=== PATIENT | male | born 1955 ===

== ENCOUNTER 2021-07-04 00:26 | Emergency (ER) | payer BC ==
--- OUTSIDE RECORDS SUMMARY | 2021-07-04 00:59 | XMS REPORT | Continuity of Care Document ---
:1955 Author Organization [facility] t Address [address] [place] [address] [address]. [address] [place] [address] Care Team Providers Name Role Phone ASHANTI Attending Clinician Unavailable ILIA Attending Clinician Unavailable SIM Attending Clinician Unavailable CECILIA Attending Clinician Unavailable Payers Payer Name Policy Type Policy Number Effective Date Expiration Date S ource OUT OF STATE BCBS - [id number] PPO - BCBS CHOICE/CHOICE [id number] PLUS/OPTIONS PPO - [facility] Problems This patient has no known problems. Allergies, Adverse Reactions, Alerts This patient has no known allergies or adverse reactions. Medications This patient has no known medications. Procedures This patient has no known procedures. Encounters Start End Encounter Admission Attending Care Care Encounter Source Date/Time Date/Time Type Type Clinicians Facility Department ID 2021-04-14 2021-04-14 Outpatient DANIELITO BURRELL [facility] [id number] [facility] 12:12:42 12:25:38 MADI be Medicin e 2021-02-16 2021-02-16 [facility] [id number] 00:00:00 00:00:00 JEN 781 Method i 2020-11-11 2020-11-11 [facility] [id number] [place] 00:00:00 00:00:00 [place] 232 Method i 2020-10-28 2020-10-28 [facility] [id number] 00:00:00 00:00:00 ETIENNE martínez 2020-10-24 2020-10-24 [facility] [id number] [place] 00:00:00 00:00:00 [place] [address] 2020-10-07 2020-10-09 Outpatient [facility] [id number] [address] 00:00:00 00:00:[address] 2020-01-15 2020-01-15 Outpatient SIM, [facility] [id number] [address] 00:00:00 00:00:00 [place] [address] 2019-12-10 2019-12-10 Outpatient SIM, [facility] [id number] [place] 00:00:00 00:00:00 [place] [address] Results This patient has no known results.
[2021-07-04 01:31] LABS: Basophils % 0.9 % (0-1.3); Hematocrit 39.9 % (39.6-49.0); Lymphocytes % 29.3 % (15.3-44.8); MPV 8.9 fL (7.6-11.3); RBC Red Blood Cell Count 4.63 M/uL (4.33-5.43)
[2021-07-04 01:34] LABS: Protime INR 0.98
[2021-07-04] MEDS ORDERED: LORazepam 2 MG/ML VIAL ONE (01:42)
[2021-07-04] MEDS ORDERED: MECLIZINE HCL 12.5 MG TAB ONE (01:42)
[2021-07-04 01:52] LABS: ALT/SGPT 44 U/L (12-78); AST/SGOT 32 U/L (15-37); Albumin 4.2 g/dL (3.4-5.0); Alkaline Phosphatase 36 U/L (45-117); BUN Blood Urea Nitrogen 19 mg/dL (7-18); Bicarbonate 25 mmol/L (21-32); Bilirubin Direct 0.4 mg/dL (0-0.2); Glucose Level 102 mg/dL (74-106); Magnesium 1.8 mg/dL (1.8-2.4); NT PRO-BNP 97 pg/mL (<125); Protein, Total 6.9 g/dL (6.4-8.2); Sodium Level 140 mmol/L (136-145); Troponin (Emerg Dept Use Only) < 0.02 ng/mL (0.0-0.045)
[2021-07-04 02:51] LABS: Urine Blood Negative (Negative); Urine Glucose Negative (Negative); Urine Protein Negative (Negative); Urine Specific Gravity <=1.005 (1.005-1.030); Urine pH 5.5 (5.0-7.0)
--- NOTE | 2021-07-04 03:04 | ER ---
Nurse's Notes [facility] Name: Karlos Daniel Age: 66 yrs Sex: Male : 1955 Arrival Date: 07/04/2021 Time: 00:31 Bed 8 Private MD: Kyle Ross Diagnosis: Dizziness and giddiness;Anxiety disorder, unspecified Presentation: 07/04 00:46 Chief complaint: Patient states: he layed down tonight and started feeling tense, bb pressure on his ear, and he could not go to sleep tonight states he never feels like this. Coronavirus screen: At this time, the client does not indicate any symptoms associated with coronavirus-19. Ebola Screen: No symptoms or risks identified at this time. Initial Sepsis Screen: Does the patient meet any 2 criteria? No. Patient's initial sepsis screen is negative. Does the patient have a suspected source of infection?. Risk Assessment: Do you want to hurt yourself or someone else? Patient reports no desire to harm self or others. Onset of symptoms was July 03, 2021 at 20:30. 00:46 Method Of Arrival: Ambulatory bb 00:46 Acuity: ADDIE 3 bb Historical: - Allergies: 00:50 No Known Allergies; bb - Home Meds: 00:50 Vascepa oral [Active]; ezetimibe oral [Active]; esomeprazole magnesium oral [Active]; bb rosuvastatin oral [Active]; losartan-hydrochlorothiazide oral [Active]; aspirin 81 mg Oral tab [Active]; - Immunization history:: Adult Immunizations up to date, pfizer x 3. - Social history:: Smoking status: Patient denies any tobacco usage or history of. Screenin:30 Abuse screen: Denies threats or abuse. Nutritional screening: No deficits noted. as6 Tuberculosis screening: No symptoms or risk factors identified. Fall Risk None identified. Assessment: 01:27 General: Appears in no apparent distress. comfortable, Behavior is calm, cooperative, as6 anxious. Pain: Complains of pain in chest Quality of pain is described as pressure. Neuro: Level of Consciousness is awake, alert, obeys commands, Oriented to person, place, time, situation, Reports weakness. Cardiovascular: Capillary refill < 3 seconds Patient's skin is warm and dry. Chest pain quality is pressure. Respiratory: Airway is patent Trachea midline Respiratory effort is even, unlabored, Respiratory pattern is regular, symmetrical. Derm: Skin is intact, is healthy with good turgor, Skin is dry, Skin is pink, warm \T\ dry. Skin temperature is warm. Musculoskeletal: Reports weakness in generalized. Vital Signs: 00:46 BP 147 / 75; Pulse 54; Resp 16 S; Temp 97.6(O); Pulse Ox 100% on R/A; Weight 85.73 kg bb (R); Height 5 ft. 10 in. (177.80 cm) (R); Pain 0/10; 02:13 BP 126 / 75; Pulse 53; Resp 14 S; Pulse Ox 96% on R/A; as6 03:22 BP 119 / 75; Pulse 62; Resp 20 S; Pulse Ox 99% on R/A; as6 00:46 Body Mass Index 27.12 (85.73 kg, 177.80 cm) bb ED Course: 00:31 Patient arrived in ED. es 00:31 Kyle Ross MD is Private Physician. es 00:50 Triage completed. bb 00:50 Arm band placed on Patient placed in an exam room. bb 00:57 Jun Zhao PA is PHCP. cp 00:57 Jun Robles MD is Attending Physician. cp 01:01 Shaka Holder RN is Primary Nurse. as6 01:27 Inserted saline lock: 18 gauge in right antecubital area, using aseptic technique. as6 Blood collected. 01:30 Placed in gown. Bed in low position. Call light in reach. Side rails up X2. Adult w/ as6 patient. potline monitor on. Pulse ox on. NIBP on. Warm blanket given. 01:46 XRAY Chest (1 view) In Process Unspecified. EDMS 01:55 CT Head Brain wo Cont In Process Unspecified. EDMS 03:22 No provider procedures requiring assistance completed. IV discontinued, intact, as6 bleeding controlled, No redness/swelling at site. Pressure dressing applied. Administered Medications: 01:46 Drug: Ativan (LORazepam) 0.5 mg Route: IVP; Site: right antecubital; as6 02:00 Follow up: Response: No adverse reaction as6 01:46 Drug: Meclizine 25 mg Route: PO; as6 02:00 Follow up: Response: No adverse reaction as6 Outcome: 03:04 Discharge ordered by MD. pan 03:23 Discharged to home ambulatory, with significant other. as6 03:23 Condition: stable 03:23 Discharge instructions given to patient, significant other, Instructed on discharge instructions, follow up and referral plans. medication usage, Demonstrated understanding of instructions, follow-up care, medications, Prescriptions given X 2. 03:24 Patient left the ED. as6 Signatures: Dispatcher [employer] Marissa Morales Brenda, RN RN Jun Villarreal PA PA cp Slawson, Ashby, RN RN as6
--- NOTE | 2021-07-04 03:05 | EDPHYS ---
Physician Documentation [facility] Name: Karlos Daniel Age: 66 yrs Sex: Male : 1955 Arrival Date: 07/04/2021 Time: 00:31 Bed 8 Private MD: Kyle Ross ED Physician Jun Robles HPI: 07/04 01:20 This 66 yrs old Male presents to ER via Ambulatory with complaints of Anxiety, light cp headed, unable to sleep. 01:20 Patient reports he was at home tonight when he went to lay down in bed, started cp becoming anxious, unable to sleep, dizzy and felt pressure across chest. Patient reports he has been dealing with pressure in right ear, intermittent dizziness since September 2020. Has been seen by ENT. Historical: - Allergies: 00:50 No Known Allergies; bb - Home Meds: 00:50 Vascepa oral [Active]; ezetimibe oral [Active]; esomeprazole magnesium oral [Active]; bb rosuvastatin oral [Active]; losartan-hydrochlorothiazide oral [Active]; aspirin 81 mg Oral tab [Active]; - Immunization history:: Adult Immunizations up to date, pfizer x 3. - Social history:: Smoking status: Patient denies any tobacco usage or history of. ROS: 01:22 Constitutional: Negative for body aches, chills, fever, poor PO intake. cp 01:22 Eyes: Negative for injury, pain, redness, and discharge. cp 01:22 ENT: Negative for drainage from ear(s), ear pain, sore throat, difficulty swallowing, difficulty handling secretions. 01:22 Cardiovascular: Positive for chest pressure, Negative for edema. 01:22 Respiratory: Negative for cough, shortness of breath, wheezing. 01:22 Abdomen/GI: Negative for abdominal pain, nausea, vomiting, and diarrhea. 01:22 Neuro: Positive for dizziness, lightheaded, Negative for altered mental status, headache, weakness. 01:22 Psych: Positive for anxiety, insomnia. 01:22 All other systems are negative. Exam: 07/03 01:25 Constitutional: The patient appears in no acute distress, alert, awake, cp non-diaphoretic, non-toxic, well developed, well nourished. 01:25 Head/Face: Normocephalic, atraumatic. cp 01:25 Eyes: Periorbital structures: appear normal, Pupils: equal, round, and reactive to light and accomodation, Extraocular movements: intact throughout, Conjunctiva: normal, no exudate, no injection, Sclera: no appreciated abnormality, Lids and lashes: appear normal, bilaterally. 01:25 ENT: External ear(s): are unremarkable, Ear canal(s): are normal, clear, TM's: dullness, bilaterally, Nose: is normal, Mouth: Lips: moist, Oral mucosa: moist, Posterior pharynx: Airway: no evidence of obstruction, patent, swelling, is not appreciated, erythema, is not appreciated. 01:25 Neck: ROM/movement: is normal, is supple, without pain, no range of motions limitations, no meningismus. 01:25 Chest/axilla: Inspection: normal, Palpation: is normal, no crepitus, no tenderness. 01:25 Cardiovascular: Rate: bradycardic, Rhythm: regular, Edema: is not appreciated, JVD: is not appreciated. 01:25 Respiratory: the patient does not display signs of respiratory distress, Respirations: normal, no use of accessory muscles, no retractions, labored breathing, is not present, Breath sounds: are clear throughout, no decreased breath sounds, no stridor, no wheezing. 01:25 Abdomen/GI: Inspection: abdomen appears normal, Palpation: abdomen is soft and non-tender, in all quadrants. 01:25 Neuro: Orientation: to person, place \T\ time. Mentation: is normal, Cerebellar function: is grossly normal, Motor: moves all fours, strength is normal, Sensation: is normal. 07/04 01:24 ECG was reviewed by the Attending Physician. cp Vital Signs: 00:46 BP 147 / 75; Pulse 54; Resp 16 S; Temp 97.6(O); Pulse Ox 100% on R/A; Weight 85.73 kg bb (R); Height 5 ft. 10 in. (177.80 cm) (R); Pain 0/10; 02:13 BP 126 / 75; Pulse 53; Resp 14 S; Pulse Ox 96% on R/A; as6 03:22 BP 119 / 75; Pulse 62; Resp 20 S; Pulse Ox 99% on R/A; as6 00:46 Body Mass Index 27.12 (85.73 kg, 177.80 cm) bb MDM: 01:09 Patient medically screened. [facility] 03:00 Data reviewed: vital signs, nurses notes, lab test result(s), EKG, radiologic studies, cp CT scan, plain films. 03:00 Differential diagnosis: vertigo, anxiety, cardiac arrythmia. Test interpretation: by ED cp physician or midlevel provider: ECG, plain radiologic studies. Response to treatment: the patient's symptoms have markedly improved after treatment, VSS. Patient resting comfortably in exam room. Will discharge to home for continued monitoring. 07/04 01:13 Order name: Basic Metabolic Panel; Complete Time: 02:15 07/04 02:15 Interpretation: Normal except: BUN 19; GFR 82. 07/04 01:13 Order name: CBC with Diff; Complete Time: 02:15 07/04 02:15 Interpretation: Normal except: HGB 13.4. 07/04 01:13 Order name: LFT's; Complete Time: 02:15 07/04 02:16 Interpretation: Normal except: ALK 36; BILIT 2.0; BILID 0.4. 07/04 01:13 Order name: Magnesium; Complete Time: 02:15 07/04 01:13 Order name: NT PRO-BNP; Complete Time: 02:15 07/04 01:13 Order name: PT-INR; Complete Time: 02:15 07/04 01:13 Order name: CT Head Brain wo Cont 07/04 01:13 Order name: Troponin (emerg Dept Use Only); Complete Time: 02:15 07/04 01:13 Order name: XRAY Chest (1 view) 07/04 01:13 Order name: EKG; Complete Time: 01:14 07/04 01:13 Order name: Cardiac monitoring; Complete Time: 01:24 07/04 02:51 Order name: Urine Dipstick-Ancillary EDMS 07/04 01:13 Order name: EKG - Nurse/Tech; Complete Time: 01:24 07/04 01:13 Order name: IV Saline Lock; Complete Time: 01:24 07/04 01:13 Order name: Labs collected and sent; Complete Time: 01:24 07/04 01:13 Order name: O2 Per Protocol; Complete Time: 01:24 07/04 01:13 Order name: O2 Sat Monitoring; Complete Time: :24 cp 07/04 02:46 Order name: Urine Dipstick-Ancillary (obtain specimen); Complete Time: 03:18 cp EC: Rate is 54 beats/min. Rhythm is regular. IL interval is normal. QRS interval is normal. cp QT interval is normal. T waves are Inverted in lead aVR. Interpreted by me. Reviewed by me. Administered Medications: :46 Drug: Ativan (LORazepam) 0.5 mg Route: IVP; Site: right antecubital; 02:00 Follow up: Response: No adverse reaction as6 01:46 Drug: Meclizine 25 mg Route: PO; 02:00 Follow up: Response: No adverse reaction as6 Disposition Summary: 07/04/21 03:04 Discharge Ordered Location: Home cp Problem: new cp Symptoms: have improved cp Condition: Stable cp Diagnosis - Dizziness and giddiness cp - Anxiety disorder, unspecified cp Followup: cp - With: Private Physician - When: 2 - 3 days - Reason: Recheck today's complaints Discharge Instructions: - Discharge Summary Sheet cp - Dizziness cp - Generalized Anxiety Disorder, Adult cp Forms: - Medication Reconciliation Form cp - Thank You Letter cp - Antibiotic Education cp - Prescription Opioid Use cp Prescriptions: - Vistaril 25 mg Oral capsule - take 1 capsule by ORAL route 4 times per day As needed for anxiety; 30 capsule; cp Refills: 0, Product Selection Permitted - Meclizine 25 mg Oral Tablet - take 1 tablet by ORAL route every 8 hours As needed; 30 tablet; Refills: 0, cp Product Selection Permitted Addendum: 07/06/2021 07:47 Co-signature as Attending Physician, Jun Robles MD I agree with the assessment and c mas plan of care. Signatures: Dispatcher [employer] Jun Guevara MD MD cha Ballard, Brenda, RN RN Jun Villarreal PA PA cp Slawson, Ashby, RN RN as6
[2021-07-04 03:56] VITALS: TEMP 97.6
[2021-07-04 03:58] VITALS: BP 119/75; O2SAT 99
--- NOTE | 2021-07-04 10:40 | RAD REPORT ---
EXAM DESCRIPTION: Pietro Single View07/04/2021 1:46 am CLINICAL HISTORY: Chest pain COMPARISON: none FINDINGS: The lungs appear clear of acute infiltrate. The heart is normal size IMPRESSION: No acute abnormalities displayed
--- NOTE | 2021-07-04 12:36 | EKG ---
Test Date: 2021-07-04 Test Time: 01:15:39 Engineer Systems: MEASUREMENT RESULTS: Intervals: Rate: 54 CA: 154 QRSD: 100 QT: 452 QTc: 428 Aylett: P: 14 CA: 154 QRS: 14 T: 34 INTERPRETIVE STATEMENTS: Sinus bradycardia Inferior infarct, age undetermined Abnormal ECG No previous ECG available for comparison Electronically Signed On 07-04-21 12:35:31 SOFTWARE DESIGN ANALYST by Tru De La Paz
--- NOTE | 2021-07-05 10:01 | RAD REPORT ---
EXAM DESCRIPTION: CT - Head Brain Wo Cont - 07/04/2021 6:29 am CLINICAL HISTORY: Dizziness COMPARISON: None. TECHNIQUE: Head/brain axial images acquired without contrast. Coronal and sagittal reformats created . Exam performed according to departmental dose-optimization program which includes automated exposur e control, adjustment of mA and/or kV according to patient size, and/or use of iterative reconstructi on technique. FINDINGS: No midline shift, mass effect, intracranial hemorrhage, or hydrocephalus. Empty Sella (likely normal variant). Prominent cisterna magna (normal variant). Paranasal sinuses clear. Mastoid air cells clear. No skull fracture or significant skull lesion. IMPRESSION: No CT evidence of acute intracranial abnormality. Electronically signed by: Alexander Trevino MD 07/04/2021 2:33 AM KNOT CUTTER Due to temporary technical issues with the PACS/Fluency reporting system, reports are being signed by the in house radiologists without review as a courtesy to insure prompt reporting. The interpreting radiologist is fully responsible for the content of the report.
== END 2021-07-04 03:24 | disposition home or self-care (01) ==
LOC: ER 00:26
DX: F41.9 Anxiety disorder, unspecified (principal)
CPT/HCPCS: 36415; 70450; 71045; 80048; 80076; 81003; 83735; 83880; 84484; 85025; 85610; 93005; 96374; 99284